=== PATIENT | female | born 1950 | race Caucasian/White ===

== ENCOUNTER → 2016-06-12 | Outpatient (CLI) | payer MEDICARE, OTHER ==
--- NOTE | 2016-06-12 13:55 | RAD ---
EXAM: DIGITAL DIAGNOSTIC LT, BREAST LEFT. HISTORY: Abnormal mammogram. COMPARISON: Mammogram 05/31/2016. FINDINGS: Digital mammography was performed. Computer-aided detection (CAD) was utilized. Spot compression views of the left breast with CC and MLO projections were obtained. Spot compression views suggest that the mass is partially compressible. Mass is thought to be at approximately 3:00, 3 cm from nipple. Further evaluation with ultrasound. Ultrasound imaging is performed of the left breast by 3d technologist. Ultrasound imaging was performed from 1:00 through 5:00. Multiple mildly dilated ducts are seen in the retroareolar and periareolar region. It is possible that the small mammographic abnormality corresponds to one of the mildly dilated ducts. No suspicious solid masses are identified within the left breast. IMPRESSION: 1. Several small mildly dilated ducts are seen in the periareolar and retroareolar left breast. No solid masses are identified. 2. It is possible that the small mammographic abnormality corresponds to one of the mildly dilated ducts. Recommend a follow-up diagnostic left mammogram in 6 months. BI-RADS CATEGORY: 3 PROBABLY BENIGN FINDING(S)-SHORT INTERVAL FOLLOW-UP SUGGESTED RECOMMENDED FOLLOW-UP: 6M 6 MONTH FOLLOW-UP PQRS compliance statement: Patient information was entered into a reminder system with a target due date for the next mammogram. Mammography is a sensitive method for finding small breast cancers, but it does not detect them all and is not a substitute for careful clinical examination. A negative mammogram does not negate a clinically suspicious finding and should not result in delay in biopsying a clinically suspicious abnormality. "Our facility is accredited by the [employer] Mammography [employer]."
== END | disposition home or self-care (01) ==
LOC: MAMMO 14:22
PROVIDERS: ATTEND Family Medicine
DX: R92.8 Other abnormal and inconclusive findings on diagnostic imaging of breast (principal)
CPT/HCPCS: 76641; G0206; 77051

== ENCOUNTER → 2016-12-25 | Outpatient (CLI) | payer MEDICARE, OTHER ==
--- NOTE | 2016-12-25 13:54 | RAD ---
DATE: 12/25/2016 EXAM: DIGITAL DIAGNOSTIC LT HISTORY: Follow-up left breast nodule COMPARISON: 06/12/2016, 05/31/2016 This study was interpreted with the benefit of Computerized Aided Detection (CAD). The breast parenchyma shows scattered fibroglandular densities. Breast parenchyma level B. FINDINGS: There is a persistent 5 mm nodular opacity projected just lateral to the midline in the anterior aspect of the left breast. It is unchanged in size. No new or enlarging breast densities are seen. No suspicious microcalcifications are evident. IMPRESSION: Unchanged small left breast nodule. Further mammographic surveillance consisting of bilateral mammography in 6 months is suggested. BI-RADS CATEGORY: 3 PROBABLY BENIGN FINDING(S)-SHORT INTERVAL FOLLOW-UP SUGGESTED RECOMMENDED FOLLOW-UP: 6M 6 MONTH FOLLOW-UP PQRS compliance statement: Patient information was entered into a reminder system with a target due date for the next mammogram. Mammography is a sensitive method for finding small breast cancers, but it does not detect them all and is not a substitute for careful clinical examination. A negative mammogram does not negate a clinically suspicious finding and should not result in delay in biopsying a clinically suspicious abnormality. "Our facility is accredited by the [employer] Mammography [employer]."
== END | disposition home or self-care (01) ==
LOC: MAMMO 12:34
PROVIDERS: ATTEND Family Medicine
DX: R92.8 Other abnormal and inconclusive findings on diagnostic imaging of breast (principal)
CPT/HCPCS: G0206; 77065

== ENCOUNTER → 2017-08-06 | Outpatient (CLI) | payer MEDICARE, OTHER | END | disposition home or self-care (01) | LOC: MAMMO 12:36 | DX: N63.20 Unspecified lump in the left breast, unspecified quadrant (principal) | CPT/HCPCS: 77066; G0279 ==

== ENCOUNTER → 2018-08-07 | Outpatient (CLI) | payer MEDICARE, OTHER ==
--- NOTE | 2018-08-07 15:41 | RAD ---
DATE: 08/07/2018 EXAM: MAMMO [facility] SCREENING BILATERAL HISTORY: Routine screening COMPARISON: 05/31/2016, 12/25/2016, 08/06/2017 This study was interpreted with the benefit of Computerized Aided Detection (CAD). Breast Density: SCATTERED The breast parenchyma shows scattered fibroglandular densities. Breast parenchyma level B. FINDINGS: 2-D and 3-D tomosynthesis imaging was performed in CC and MLO projections. There is an unchanged small nodule located just lateral to the midline in the left breast. No new or enlarging breast densities are seen. Benign type calcification is present. No suspicious microcalcifications have developed. IMPRESSION: Stable mammograms without evidence of malignancy. BI-RADS CATEGORY: 2 BENIGN FINDING(S) RECOMMENDED FOLLOW-UP: 12M 12 MONTH FOLLOW-UP PQRS compliance statement: Patient information was entered into a reminder system with a target due date for the next mammogram. Mammography is a sensitive method for finding small breast cancers, but it does not detect them all and is not a substitute for careful clinical examination. A negative mammogram does not negate a clinically suspicious finding and should not result in delay in biopsying a clinically suspicious abnormality. "Our facility is accredited by the [employer] Mammography [employer]."
== END | disposition home or self-care (01) ==
LOC: MAMMO 13:55
PROVIDERS: ATTEND Family Medicine
DX: Z12.31 Encounter for screening mammogram for malignant neoplasm of breast (principal)
CPT/HCPCS: 77063; 77067

== ENCOUNTER → 2020-05-09 | Outpatient (CLI) | payer MEDICARE, OTHER ==
--- NOTE | 2020-05-09 17:16 | RAD ---
BILATERAL SCREENING MAMMOGRAM, 3-D History: Routine screening. Comparison: 05/31/2016, 08/06/2017, 08/07/2018. Technique: MLO and CC digital tomosynthesis (3D) images obtained. Radiologist reviewed these images on dedicated workstation. Findings: Breast Tissue Density B : There are scattered areas of fibroglandular density. There are no dominant masses, suspicious microcalcifications, or architectural distortion. IMPRESSION: No mammographic evidence of malignancy. Recommend routine screening. BI-RADS category 1: Negative. The images were reviewed with computer-aided detection. Patient information is entered into reminder system with a target due date for the next screening mammogram. Mammography is the most sensitive method for finding small breast cancers, but it does not detect them all and is not a substitute for careful clinical examination. A negative mammogram does not negate a clinically suspicious finding and should not result in delay in biopsying a clinically suspicious abnormality. "Our facility is accredited by the [employer] Mammography Program." Electronically signed by: Isaías Boogie MD (05/09/2020 5:13 PM) [email or web address]
== END ==
LOC: MAMMO 13:15
PROVIDERS: ATTEND Family Medicine
DX: Z12.31 Encounter for screening mammogram for malignant neoplasm of breast (principal)
CPT/HCPCS: 77063; 77067

== ENCOUNTER → 2021-07-12 | Outpatient (CLI) | payer MEDICARE, OTHER ==
--- NOTE | 2021-07-12 16:33 | RAD ---
Bilateral digital screening 2-D and 3-D (digital breast tomosynthesis) mammogram: Reason for examination: Routine screening. Comparison: Mammograms from 05/09/2020 and 08/07/2018. Interpretation was made with the benefit of CAD. FINDINGS: Breast density: Category B. There are scattered areas of fibroglandular density. No suspicious breast mass, malignant appearing calcifications, or architectural distortion is seen. IMPRESSION: No evidence of malignancy. Assessment: BI-RADS 1. Negative. Recommendation: Routine screening mammograms. The patient will receive a letter with the results in the mail. Patient information will be entered i nto the mammography reminder system with a target recall date for the next mammogram. A reminder sue er will be generated. Electronically signed by: Chey Meyer MD (07/12/2021 4:30 PM) [email or web address]
== END ==
LOC: MAMMO 14:39
PROVIDERS: ATTEND Family Medicine
DX: Z12.31 Encounter for screening mammogram for malignant neoplasm of breast (principal)
CPT/HCPCS: 77063; 77067